=== PATIENT | female | born 1985 | race Caucasian/White ===

== ENCOUNTER 2016-11-07 23:53 | Emergency (ER) | payer MEDICAID ==
[2015-05-27 23:19] VITALS: BMI 36.1
[~2016-11-07 23:53] MED LIST: BACLOFEN10 MG PO; BACLOFEN20 M1 PO; CELEXA40 MG PO; CIPRO500 MG PO; DILAUDID2 MG PO; DILAUDID4 MG PO; KLONOPIN1 MG PO; LEVAQUIN750 MG PO; PERCOCET 10/3251 TA1 PO; PHENERGAN25 M1 PO; PRILOSEC20 MG PO; VANCOMYCIN 1 GM/1 G1 IV
== END 2016-11-08 01:03 | disposition home or self-care (01) ==
LOC: D.ER 23:53
DX: J20.9 Acute bronchitis, unspecified (principal); J06.9 Acute upper respiratory infection, unspecified; R19.7 Diarrhea, unspecified

== ENCOUNTER 2016-12-16 09:56 | Emergency (ER) | payer SELFPAY ==
[2015-05-27 23:19] VITALS: BMI 36.1
[2016-12-16 10:40] LABS: APPEARANCE HAZY (CLEAR); BILIRUBIN NEGATIVE (NEGATIVE); COLOR STRAW (YELLOW); GLUCOSE NEGATIVE (NEGATIVE); KETONE NEGATIVE (NEGATIVE); LEUKOCYTE ESTERASE TRACE (NEGATIVE); NITRITE NEGATIVE (NEGATIVE); PROTEIN NEGATIVE (NEGATIVE); SPECIFIC GRAVITY 1.015 (1.005-1.020); UROBILINOGEN NORMAL (NORMAL)
[2016-12-16 10:44] LABS: BASOPHILS 0.5 % (0.0-2.0); EOSINOPHILS 1.3 % (0-7); HEMATOCRIT 43.1 % (36.0-48.0); HEMOGLOBIN 14.4 g/dL (12-16); IMMATURE GRANULOCYTES 0.3 % (0-5); LYMPHOCYTES 23.5 % (15-50); MCH 31.6 pg (26.0-34.0); MCHC 33.4 g/dL (31.0-37.0); MCV 94.7 fL (80.0-100.0); NEUTROPHILS 67.4 % (40-80); PLATELET COUNT 165 10x3/uL (130-400); RBC 4.55 10x6/uL (4.00-5.40); RDW 12.5 % (11.5-14.5); WBC 6.4 10x3/uL (4.8-10.8)
[2016-12-16 10:49] LABS: BACTERIA MODERATE /hpf (NONE SEEN); RED CELLS - URINE 0-5 /hpf (0-5); WHITE CELLS - URINE 0-5 /hpf (0-5)
[2016-12-16 10:53] LABS: MUCUS <1+ /lpf (NONE SEEN)
[2016-12-16 10:54] LABS: AMORPHOUS SEDIMENT <1+ /lpf (NONE SEEN)
[2016-12-16 10:59] LABS: HCG URINE NEGATIVE (NEGATIVE)
[2016-12-16 11:20] LABS: ALBUMIN 3.7 g/dL (3.4-5.0); ALKALINE PHOSPHATASE 72 U/L (46-116); ALT (SGPT) 32 U/L (10-68); BILIRUBIN - TOTAL 0.64 mg/dL (0.2-1.3); CALC OSMOLALITY 274 mosm/kg (275-300); CALCIUM 8.9 mg/dL (8.5-10.1); CARBON DIOXIDE 22.8 mmol/L (21.0-32.0); CHLORIDE - SERUM 105 mmol/L (98-107); CREATININE - SERUM 0.8 mg/dL (0.6-1.3); GLUCOSE 86 mg/dL (74-106); POTASSIUM - SERUM 4.6 mmol/L (3.5-5.1); PROTEIN - SERUM 7.7 g/dL (6.4-8.2); SODIUM 137 mmol/L (136-145); UREA NITROGEN 19 mg/dL (7-18); eGFR NON AFRICAN AMERICAN 88 mL/min (90-120)
[2016-12-16 11:27] LABS: LIPASE 135 U/L (73-393)
== END 2016-12-16 13:24 | disposition home or self-care (01) ==
LOC: D.ER 09:56
PROVIDERS: Emergency Medicine
DX: R10.12 Left upper quadrant pain (principal); K59.00 Constipation, unspecified; F17.200 Nicotine dependence, unspecified, uncomplicated

== ENCOUNTER 2017-02-17 22:39 | Emergency (ER) | payer SELFPAY ==
[2015-05-27 23:19] VITALS: BMI 36.1
[2017-02-18 00:09] LABS: BASOPHILS 0.1 % (0-2); EOSINOPHILS 1.4 % (0-7); HEMATOCRIT 42.3 % (36.0-48.0); HEMOGLOBIN 14.1 g/dL (12-16); IMMATURE GRANULOCYTES 0.3 % (0-5); LYMPHOCYTES 23.5 % (15-50); MCH 31.7 pg (26.0-34.0); MCHC 33.3 g/dL (31.0-37.0); MCV 95.1 fL (80.0-100.0); MEAN PLATELET VOLUME 11.2 fL (7.4-10.4); MONOCYTES 4.9 % (2-11); NEUTROPHILS 69.8 % (40-80); PLATELET COUNT 163 10x3/uL (130-400); RBC 4.45 10x6/uL (4.00-5.40); RDW 12.2 % (11.5-14.5); WBC 7.8 10x3/uL (4.8-10.8)
[2017-02-18 00:25] LABS: ALBUMIN 3.8 g/dL (3.4-5.0); ALKALINE PHOSPHATASE 70 U/L (46-116); ALT (SGPT) 24 U/L (10-68); CALC OSMOLALITY 281 mosm/kg (275-300); CALCIUM 8.9 mg/dL (8.5-10.1); CARBON DIOXIDE 25.2 mmol/L (21.0-32.0); CHLORIDE - SERUM 103 mmol/L (98-107); CREATININE - SERUM 0.8 mg/dL (0.6-1.3); POTASSIUM - SERUM 3.8 mmol/L (3.5-5.1); PROTEIN - SERUM 7.2 g/dL (6.4-8.2); SODIUM 139 mmol/L (136-145); UREA NITROGEN 18 mg/dL (7-18); eGFR NON AFRICAN AMERICAN 88 mL/min (90-120)
[2017-02-18 00:27] LABS: GLUCOSE 134 mg/dL (74-106)
== END 2017-02-18 00:30 | disposition home or self-care (01) ==
LOC: D.ER 22:39
PROVIDERS: Physician Assistant Medical
DX: R05 Cough (principal); J06.9 Acute upper respiratory infection, unspecified; K59.00 Constipation, unspecified

== ENCOUNTER 2017-02-18 23:12 | Emergency (ER) | payer SELFPAY ==
[2015-05-27 23:19] VITALS: BMI 36.1
== END 2017-02-19 05:20 | disposition home or self-care (01) ==
LOC: D.ER 23:12
DX: S20.212A Contusion of left front wall of thorax, initial encounter (principal); S20.211A Contusion of right front wall of thorax, initial encounter; S50.02XA Contusion of left elbow, initial encounter; S60.212A Contusion of left wrist, initial encounter; V49.60XA Unspecified car occupant injured in collision with unspecified motor vehicles in traffic accident, initial encounter; S16.1XXA Strain of muscle, fascia and tendon at neck level, initial encounter

== ENCOUNTER 2017-02-20 22:23 | Emergency (ER) | payer SELFPAY ==
[2015-05-27 23:19] VITALS: BMI 36.1
[2017-02-21 00:56] LABS: HEMATOCRIT 37.7 % (36.0-48.0); HEMOGLOBIN 12.8 g/dL (12-16); LYMPHOCYTES 28.4 % (15-50); MCH 31.3 pg (26.0-34.0); MCV 92.2 fL (80.0-100.0); MEAN PLATELET VOLUME 10.5 fL (7.4-10.4); NEUTROPHILS 62.5 % (40-80); PLATELET COUNT 142 10x3/uL (130-400); RBC 4.09 10x6/uL (4.00-5.40); RDW 11.8 % (11.5-14.5); WBC 7.2 10x3/uL (4.8-10.8)
[2017-02-21 01:04] LABS: CALC OSMOLALITY 286 mosm/kg (275-300); CALCIUM 8.5 mg/dL (8.5-10.1); CARBON DIOXIDE 25.7 mmol/L (21.0-32.0); CHLORIDE - SERUM 107 mmol/L (98-107); CREATININE - SERUM 0.7 mg/dL (0.6-1.3); GLUCOSE 89 mg/dL (74-106); POTASSIUM - SERUM 3.8 mmol/L (3.5-5.1); SODIUM 142 mmol/L (136-145); UREA NITROGEN 26 mg/dL (7-18); eGFR NON AFRICAN AMERICAN > 90 mL/min (90-120)
== END 2017-02-21 02:16 | disposition home or self-care (01) ==
LOC: D.ER 22:23
PROVIDERS: Emergency Medicine Emergency Medical Services
DX: S50.02XA Contusion of left elbow, initial encounter (principal); S60.212A Contusion of left wrist, initial encounter; S20.212A Contusion of left front wall of thorax, initial encounter; S20.211A Contusion of right front wall of thorax, initial encounter; V59.9XXA Occupant (driver) (passenger) of pick-up truck or van injured in unspecified traffic accident, initial encounter

== ENCOUNTER 2017-05-10 22:36 | Emergency (ER) | payer SELFPAY ==
[2015-05-27 23:19] VITALS: BMI 36.1
== END 2017-05-11 03:00 | disposition home or self-care (01) ==
LOC: D.ER 22:36
DX: L73.9 Follicular disorder, unspecified (principal); D37.8 Neoplasm of uncertain behavior of other specified digestive organs; Z86.73 Personal history of transient ischemic attack (TIA), and cerebral infarction without residual deficits; I10 Essential (primary) hypertension

== ENCOUNTER 2017-06-14 13:45 | Emergency (ER) | payer SELFPAY ==
[2015-05-27 23:19] VITALS: BMI 36.1
[2017-06-14 16:22] LABS: BASOPHILS 0.2 % (0-2); EOSINOPHILS 2.1 % (0-7); HEMATOCRIT 41.6 % (36.0-48.0); HEMOGLOBIN 14.1 g/dL (12-16); IMMATURE GRANULOCYTES 0.3 % (0-5); LYMPHOCYTES 18.8 % (15-50); MCH 31.4 pg (26.0-34.0); MCHC 33.9 g/dL (31.0-37.0); MCV 92.7 fL (80.0-100.0); MEAN PLATELET VOLUME 10.5 fL (7.4-10.4); MONOCYTES 7.7 % (2-11); NEUTROPHILS 70.9 % (40-80); RBC 4.49 10x6/uL (4.00-5.40); RDW 12.1 % (11.5-14.5); WBC 6.6 10x3/uL (4.8-10.8)
[2017-06-14 16:37] LABS: PLATELET COUNT 176 10x3/uL (130-400)
[2017-06-14 16:38] LABS: ALBUMIN 3.3 g/dL (3.4-5.0); ALKALINE PHOSPHATASE 79 U/L (46-116); ALT (SGPT) 29 U/L (10-68); BILIRUBIN - TOTAL 0.31 mg/dL (0.2-1.3); CALC OSMOLALITY 277 mosm/kg (275-300); CALCIUM 8.6 mg/dL (8.5-10.1); CARBON DIOXIDE 28.1 mmol/L (21.0-32.0); CHLORIDE - SERUM 104 mmol/L (98-107); CREATININE - SERUM 0.7 mg/dL (0.6-1.3); GLUCOSE 95 mg/dL (74-106); POTASSIUM - SERUM 3.6 mmol/L (3.5-5.1); PROTEIN - SERUM 7.1 g/dL (6.4-8.2); SODIUM 138 mmol/L (136-145); UREA NITROGEN 19 mg/dL (7-18); eGFR NON AFRICAN AMERICAN > 90 mL/min (90-120)
== END 2017-06-14 18:20 | disposition home or self-care (01) ==
LOC: D.ER 13:45
PROVIDERS: Physician Assistant Medical
DX: K61.0 Anal abscess (principal); F17.200 Nicotine dependence, unspecified, uncomplicated

== ENCOUNTER 2017-06-21 22:19 | Emergency (ER) | payer MEDICAID ==
[2015-05-27 23:19] VITALS: BMI 36.1
[2017-06-21 22:55] LABS: APPEARANCE CLEAR (CLEAR); BILIRUBIN NEGATIVE (NEGATIVE); COLOR YELLOW (YELLOW); GLUCOSE NEGATIVE (NEGATIVE); KETONE NEGATIVE (NEGATIVE); NITRITE NEGATIVE (NEGATIVE); PROTEIN NEGATIVE (NEGATIVE); UROBILINOGEN NORMAL (NORMAL)
[2017-06-21 22:57] LABS: BACTERIA FEW /hpf (NONE SEEN); MUCUS <1+ /lpf (NONE SEEN); RED CELLS - URINE 0-5 /hpf (0-5); WHITE CELLS - URINE 0-5 /hpf (0-5)
[2017-06-21 23:30] LABS: HEMATOCRIT 39.9 % (36.0-48.0); HEMOGLOBIN 13.5 g/dL (12-16); LYMPHOCYTES 26.4 % (15-50); MCH 30.9 pg (26.0-34.0); MCHC 33.8 g/dL (31.0-37.0); MCV 91.3 fL (80.0-100.0); MEAN PLATELET VOLUME 9.8 fL (7.4-10.4); PLATELET COUNT 165 10x3/uL (130-400); RBC 4.37 10x6/uL (4.00-5.40); RDW 11.8 % (11.5-14.5); WBC 6.8 10x3/uL (4.8-10.8)
[2017-06-21 23:43] LABS: ALBUMIN 3.6 g/dL (3.4-5.0); ALKALINE PHOSPHATASE 72 U/L (46-116); ALT (SGPT) 29 U/L (10-68); AMYLASE - SERUM 41 U/L (25-115); CALC OSMOLALITY 289 mosm/kg (275-300); CALCIUM 8.5 mg/dL (8.5-10.1); CARBON DIOXIDE 27.8 mmol/L (21.0-32.0); CHLORIDE - SERUM 108 mmol/L (98-107); CREATININE - SERUM 0.8 mg/dL (0.6-1.3); GLUCOSE 108 mg/dL (74-106); LIPASE 146 U/L (73-393); POTASSIUM - SERUM 3.9 mmol/L (3.5-5.1); PROTEIN - SERUM 6.7 g/dL (6.4-8.2); SODIUM 144 mmol/L (136-145); UREA NITROGEN 19 mg/dL (7-18); eGFR NON AFRICAN AMERICAN 87 mL/min (90-120)
== END 2017-06-22 02:20 | disposition home or self-care (01) ==
LOC: D.ER 22:19
PROVIDERS: Family Medicine
DX: R10.9 Unspecified abdominal pain (principal); F17.200 Nicotine dependence, unspecified, uncomplicated

== ENCOUNTER 2017-07-27 21:28 | Emergency (ER) | payer MEDICAID ==
[2015-05-27 23:19] VITALS: BMI 36.1
== END 2017-07-28 00:52 | disposition home or self-care (01) ==
LOC: D.ER 21:28
DX: F07.81 Postconcussional syndrome (principal); S16.1XXA Strain of muscle, fascia and tendon at neck level, initial encounter; V43.52XA Car driver injured in collision with other type car in traffic accident, initial encounter; Y93.89 Activity, other specified; Y92.410 Unspecified street and highway as the place of occurrence of the external cause; S29.012A Strain of muscle and tendon of back wall of thorax, initial encounter

== ENCOUNTER 2017-10-17 20:15 | Emergency (ER) | payer MEDICAID ==
[2015-05-27 23:19] VITALS: BMI 36.1
[2017-10-17 21:34] LABS: APPEARANCE CLEAR (CLEAR); BACTERIA FEW /hpf (NONE SEEN); BILIRUBIN NEGATIVE (NEGATIVE); COLOR YELLOW (YELLOW); GLUCOSE NEGATIVE (NEGATIVE); KETONE NEGATIVE (NEGATIVE); MUCUS >1+ /lpf (NONE SEEN); NITRITE NEGATIVE (NEGATIVE); PROTEIN NEGATIVE (NEGATIVE); RED CELLS - URINE 0-5 /hpf (0-5); UROBILINOGEN NORMAL (NORMAL); WHITE CELLS - URINE 0-5 /hpf (0-5)
[2017-10-17 21:37] LABS: BASOPHILS 0.1 % (0-2); HEMATOCRIT 43.2 % (36.0-48.0); HEMOGLOBIN 14.4 g/dL (12-16); IMMATURE GRANULOCYTES 0.3 % (0-5); MCH 31.2 pg (26.0-34.0); MCHC 33.3 g/dL (31.0-37.0); MCV 93.5 fL (80.0-100.0); MEAN PLATELET VOLUME 10.8 fL (7.4-10.4); MONOCYTES 7.8 % (2-11); NEUTROPHILS 70.8 % (40-80); PLATELET COUNT 183 10x3/uL (130-400); RBC 4.62 10x6/uL (4.00-5.40); RDW 12.4 % (11.5-14.5); WBC 8.7 10x3/uL (4.8-10.8)
[2017-10-17 21:49] LABS: ALBUMIN 3.9 g/dL (3.4-5.0); ALKALINE PHOSPHATASE 59 U/L (46-116); ALT (SGPT) 24 U/L (10-68); BILIRUBIN - TOTAL 0.56 mg/dL (0.2-1.3); CALC OSMOLALITY 284 mosm/kg (275-300); CALCIUM 8.8 mg/dL (8.5-10.1); CARBON DIOXIDE 25.3 mmol/L (21.0-32.0); CHLORIDE - SERUM 104 mmol/L (98-107); CREATININE - SERUM 0.8 mg/dL (0.6-1.3); GLUCOSE 91 mg/dL (74-106); POTASSIUM - SERUM 3.8 mmol/L (3.5-5.1); PROTEIN - SERUM 7.7 g/dL (6.4-8.2); SODIUM 142 mmol/L (136-145); UREA NITROGEN 19 mg/dL (7-18); eGFR NON AFRICAN AMERICAN 87 mL/min (90-120)
[2017-10-17 23:55] LABS: AMYLASE - SERUM 47 U/L (25-115); LIPASE 125 U/L (73-393)
[2017-10-17 23:59] LABS: HCG URINE NEGATIVE (NEGATIVE)
== END 2017-10-18 03:37 | disposition home or self-care (01) ==
LOC: D.ER 20:15
PROVIDERS: Family Medicine
DX: N39.0 Urinary tract infection, site not specified (principal); K63.89 Other specified diseases of intestine; I10 Essential (primary) hypertension

== ENCOUNTER 2018-03-16 18:04 | Emergency (ER) | payer MEDICAID ==
[~2018-03-16] VITALS: Ht 162.6 cm; Wt 122.7 kg
[2018-03-16 18:18] VITALS: Ht 162.6 cm; Wt 122.7 kg
[2018-03-16 23:33] LABS: APPEARANCE CLEAR (CLEAR); BILIRUBIN NEGATIVE (NEGATIVE); COLOR YELLOW (YELLOW); GLUCOSE NEGATIVE (NEGATIVE); KETONE NEGATIVE (NEGATIVE); NITRITE NEGATIVE (NEGATIVE); PROTEIN NEGATIVE (NEGATIVE); SPECIFIC GRAVITY 1.015 (1.005-1.020); UROBILINOGEN NORMAL (NORMAL)
[2018-03-17 00:19] LABS: BASOPHILS 0.2 % (0-2); EOSINOPHILS 2.9 % (0-7); HEMOGLOBIN 13.6 g/dL (12-16); IMMATURE GRANULOCYTES 0.2 % (0-5); LYMPHOCYTES 23.7 % (15-50); MCH 31.4 pg (26.0-34.0); MCHC 33.2 g/dL (31.0-37.0); MCV 94.7 fL (80.0-100.0); MEAN PLATELET VOLUME 10.7 fL (7.4-10.4); MONOCYTES 5.6 % (2-11); NEUTROPHILS 67.4 % (40-80); PLATELET COUNT 184 10x3/uL (130-400); RBC 4.33 10x6/uL (4.00-5.40); RDW 12.8 % (11.5-14.5); WBC 8.2 10x3/uL (4.8-10.8)
[2018-03-17 00:42] LABS: ALBUMIN 3.4 g/dL (3.4-5.0); ALKALINE PHOSPHATASE 81 U/L (46-116); ALT (SGPT) 24 U/L (10-68); BILIRUBIN - TOTAL 0.34 mg/dL (0.2-1.3); CALC OSMOLALITY 281 mosm/kg (275-300); CHLORIDE - SERUM 106 mmol/L (98-107); CREATININE - SERUM 0.8 mg/dL (0.6-1.3); GLUCOSE 120 mg/dL (74-106); POTASSIUM - SERUM 3.7 mmol/L (3.5-5.1); PROTEIN - SERUM 7.3 g/dL (6.4-8.2); SODIUM 140 mmol/L (136-145); UREA NITROGEN 17 mg/dL (7-18); eGFR NON AFRICAN AMERICAN 87 mL/min (90-120)
[2018-03-17] MEDS ORDERED: ACETAMINOPHEN500 M1 PO (02:07)
[2018-03-17] MEDS ORDERED: CYCLOBENZAPRINE10 MG PO (02:07)
[2018-03-17] MEDS ORDERED: CLEOCIN HCL300 MG PO (02:07)
[2018-03-17] MEDS ORDERED: IBUPROFEN800 MG PO (02:07)
[2018-03-17] MEDS ORDERED: KEFLEX500 MG PO (02:07)
[2018-03-17 02:50] VITALS: BP 132/80
== END 2018-03-17 02:50 | disposition home or self-care (01) ==
LOC: D.ER 18:04
PROVIDERS: Family Medicine
DX: M79.605 Pain in left leg (principal); L03.311 Cellulitis of abdominal wall; F17.200 Nicotine dependence, unspecified, uncomplicated

== ENCOUNTER 2018-07-16 20:38 | Emergency (ER) | payer SELFPAY ==
[~2018-07-16] VITALS: Ht 162.6 cm; Wt 90.9 kg
[~2018-07-16 20:38] MED LIST changes: +ACETAMINOPHEN500 M1 PO; +CLEOCIN HCL300 MG PO; +CYCLOBENZAPRINE10 MG PO; +IBUPROFEN800 MG PO; +KEFLEX500 MG PO
[2018-07-16 20:46] VITALS: Ht 162.6 cm; Wt 90.9 kg
[2018-07-16] MEDS ORDERED: ZITHROMAX500 MG PO (21:05)
[2018-07-16] MEDS ORDERED: AMOXICILLIN500 M1 PO (21:05)
[2018-07-16] MEDS ORDERED: VENTOLIN HFA18 GM INH (21:05)
[2018-07-16 23:00] VITALS: BP 128/81
== END 2018-07-16 23:00 | disposition home or self-care (01) ==
LOC: D.ER 20:38
DX: J20.9 Acute bronchitis, unspecified (principal); F17.200 Nicotine dependence, unspecified, uncomplicated

== ENCOUNTER 2018-07-26 21:56 | Emergency (ER) | payer SELFPAY ==
[~2018-07-26] VITALS: Ht 162.6 cm; Wt 122.7 kg
[~2018-07-26 21:56] MED LIST changes: +AMOXICILLIN500 M1 PO; +VENTOLIN HFA18 GM INH; +ZITHROMAX500 MG PO
[2018-07-26 22:00] VITALS: Ht 162.6 cm; Wt 122.7 kg
[2018-07-26] MEDS ORDERED: ROBAXIN500 MG PO (23:25)
[2018-07-26] MEDS ORDERED: MEDROL DOSE PACK4 MG PO (23:25)
[2018-07-26 23:50] VITALS: BP 126/68
== END 2018-07-26 23:50 | disposition home or self-care (01) ==
LOC: D.ER 21:56
DX: J40 Bronchitis, not specified as acute or chronic (principal); Z91.19 Patient's noncompliance with other medical treatment and regimen; R09.1 Pleurisy; F17.200 Nicotine dependence, unspecified, uncomplicated

== ENCOUNTER 2019-03-21 11:28 | Day surgery (SDC) | payer BC ==
[~2019-03-21] VITALS: Ht 162.6 cm; Wt 124.5 kg
--- NOTE | ~2019-03-21 | OP ---
PATIENT NAME: HETAL LYN MEDICAL RECORD: [id number] :83 LOCATION:D.OPS ADMISSION DATE: SURGEON: HARLEY JOINER DO DATE OF OPERATION: 03/21/2019 PROCEDURE: Colonoscopy with biopsies. INDICATIONS FOR PROCEDURE: Change in bowel habits, generalized abdominal tenderness. SCOPE: Virtuix video pediatric colonoscope. MEDICATIONS: Propofol 250 mg IV per anesthesia. WITHDRAWAL TIME: 6 minutes. ESTIMATED BLOOD LOSS: Minimal. COMPLICATIONS: None. FINDINGS: Informed consent was given. The patient was made comfortable with the above medication. After reaching an adequate level of sedation by slow IV push, the patient was placed in the left side. A digital rectal examination was performed and it was normal. The endoscope was then advanced under direct visualization through the rectum to the cecum and terminal ileum. The endoscope was slowly withdrawn and mucosa was carefully examined. The prep quality was excellent. The terminal ileum looked normal. As the endoscope was withdrawn through the colon, random biopsies were taken to submit for histopathology and to rule out the presence of microscopic colitis. There were no abnormal lesions within the colon itself. No diverticula were seen. In the rectum, there was questionably abnormal mucosa at the most distal segment characterized by change in vascular pattern and some granularity. Cold forceps, biopsies were taken of this site separately to submit for histopathology. Retroflexion was performed with a normal-appearing rectal wall. The endoscope was then withdrawn from the patient. The patient tolerated the procedure well and there were no complications. IMPRESSION: Normal colonoscopy with questionable abnormal mucosa located to the very distal rectum. Biopsies were taken randomly throughout the colon as well as the rectum itself. PLAN AND RECOMMENDATIONS: 1. Discharge home when recovery parameters are met. 2. Follow up biopsy specimen results. 3. High fiber diet. 4. Continue current medications. 5. Proceed with EGD as scheduled. 6. We will provide a trial of dicyclomine 20 mg p.o. t.i.d. p.r.n. loose stools or abdominal pain or cramping. 7. Recall colonoscopy at age 49 for colorectal cancer screening. TRANSINT:[id number] Voice Confirmation ID: [id number] DOCUMENT ID: [id number] OPERATIVE REPORT [id number] HETAL LYN HARLEY JOINER DO CC: [id number] DICTATION DATE: 03/21/19 1510 PRODUCTION PAINTER: 03/21/19 1622 DEP SDC 03/21/19 [facility] [address] [place] [address]
[~2019-03-21 11:28] MED LIST changes: +MEDROL DOSE PACK4 MG PO; +ROBAXIN500 MG PO
[2019-03-21 12:01] LABS: HEMATOCRIT 44.7 % (36.0-48.0); HEMOGLOBIN 15.3 g/dL (12-16); MCH 31.4 pg (26.0-34.0); MCHC 34.2 g/dL (31.0-37.0); MCV 91.6 fL (80.0-100.0); MEAN PLATELET VOLUME 10.3 fL (7.4-10.4); RBC 4.88 10x6/uL (4.00-5.40); RDW 13.1 % (11.5-14.5); WBC 7.4 10x3/uL (4.8-10.8)
[2019-03-21 12:11] LABS: CALC OSMOLALITY 277 mosm/kg (275-300); CARBON DIOXIDE 27.3 mmol/L (21.0-32.0); CHLORIDE - SERUM 103 mmol/L (98-107); CREATININE - SERUM 0.8 mg/dL (0.6-1.3); GLUCOSE 87 mg/dL (74-106); POTASSIUM - SERUM 3.9 mmol/L (3.5-5.1); SODIUM 139 mmol/L (136-145); UREA NITROGEN 14 mg/dL (7-18); eGFR NON AFRICAN AMERICAN 87 mL/min (90-120)
[2019-03-21] MEDS ORDERED: MAXZIDE 75/501 TAB PO (13:28)
[2019-03-21] MEDS ORDERED: OXYBUTYNIN CHLOR5 M1 PO (13:30)
[2019-03-21] MEDS ORDERED: VICTOZA0.6 MG/0.1 SQ (13:30)
[2019-03-21 13:33] VITALS: Ht 162.6 cm; Wt 124.5 kg
[2019-03-21 13:55] LABS: HCG URINE NEGATIVE (NEGATIVE)
== END 2019-03-21 16:10 | disposition home or self-care (01) ==
LOC: D.OPS 11:28
PROVIDERS: Anesthesiology; ATTEND Internal Medicine Gastroenterology
DX: K52.9 Noninfective gastroenteritis and colitis, unspecified (principal); Z01.812 Encounter for preprocedural laboratory examination

== ENCOUNTER 2019-05-02 09:00 | Day surgery (SDC) | payer BC ==
[~2019-05-02] VITALS: Ht 162.6 cm; Wt 114.5 kg
[~2019-05-02 09:00] MED LIST changes: +MAXZIDE 75/501 TAB PO; +OXYBUTYNIN CHLOR5 M1 PO; +VICTOZA0.6 MG/0.1 SQ
[2019-05-02 09:25] LABS: HEMATOCRIT 41.1 % (36.0-48.0); HEMOGLOBIN 14.3 g/dL (12-16); MCH 31.5 pg (26.0-34.0); MCHC 34.8 g/dL (31.0-37.0); MCV 90.5 fL (80.0-100.0); MEAN PLATELET VOLUME 10.8 fL (7.4-10.4); RBC 4.54 10x6/uL (4.00-5.40); RDW 13.1 % (11.5-14.5); WBC 8.4 10x3/uL (4.8-10.8)
[2019-05-02 11:10] VITALS: Ht 162.6 cm; Wt 114.5 kg
--- NOTE | 2019-05-02 13:30 | NUR ---
IV DC'D WITH TIP INTACT, DISCHARGE INSTRUCTIONS PROVIDED. APPT WITH DR BLOCK FOR 05/10/19
--- NOTE | 2019-05-03 17:39 | OP ---
PATIENT NAME: HETAL LYN MEDICAL RECORD: [id number] :83 LOCATION:D.OPS ADMISSION DATE: SURGEON: HARLEY JOINER DO DATE OF OPERATION: 05/02/2019 PROCEDURE: EGD with biopsies. INDICATIONS FOR PROCEDURE: GERD, steatosis of liver, change in bowel habits, generalized abdominal tenderness. SCOPE: Olympus video gastroscope. MEDICATIONS: Propofol 350 mg IV per anesthesia. ESTIMATED BLOOD LOSS: Minimal. COMPLICATIONS: None. FINDINGS AND DESCRIPTION OF PROCEDURE: Informed consent was given. The patient was made comfortable with the above medication. After reaching an adequate level of sedation by slow IV push, the patient was placed on her left side. The endoscope was advanced under direct visualization through the mouth to the second portion of the duodenum with ease. The entire esophagus appeared normal. Cold forceps biopsies were taken from the midesophagus to rule out the presence of eosinophils. At the GE junction, there was evidence of LA class A reflux-induced esophagitis. Cold forceps biopsies were taken at the GE junction to rule out any Sandoval's mucosa. The patient did have a small sliding hiatal hernia, which could be seen proximally and distally upon retroflexion within the stomach. The mucosa of the stomach appeared normal throughout its entirety. Random cold forceps biopsies were taken to submit for histopathology and to rule out the presence of H. pylori. The endoscope was advanced beyond the pylorus into the duodenum, which appeared normal down to the second portion. Cold forceps biopsies were taken randomly to submit for histopathology. The endoscope was withdrawn from the patient. The patient tolerated the procedure well and there were no complications. IMPRESSION: 1. LA class A reflux-induced esophagitis. 2. Small sliding hiatal hernia. PLAN AND RECOMMENDATIONS: 1. Discharge home when recovery parameters are met. 2. Follow up biopsy specimen results. 3. High fiber diet and GERD diet with reflux precautions. 4. Continue current medications. 5. We will discuss changing omeprazole to another PPI versus referral to surgery for antireflux procedure and hiatal hernia repair. The hernia itself is small, but she does report significant reflux and actually reports laryngopharyngeal reflux. TRANSINT:[id number] Voice Confirmation ID: [id number] DOCUMENT ID: [id number] OPERATIVE REPORT [id number] HETAL LYN HRALEY JOINER DO at 1739 CC: [id number] DICTATION DATE: 05/02/19 1247 [employer]OE [employer]S CASER: 05/02/19 1300 [facility] 05/02/19 [place] [id number] [place] [address]
== END 2019-05-02 13:34 | disposition home or self-care (01) ==
LOC: D.OPS 09:00
PROVIDERS: Anesthesiology; ATTEND Internal Medicine Gastroenterology
DX: K21.9 Gastro-esophageal reflux disease without esophagitis (principal); K76.0 Fatty (change of) liver, not elsewhere classified; R19.4 Change in bowel habit; K21.0 Gastro-esophageal reflux disease with esophagitis; K44.9 Diaphragmatic hernia without obstruction or gangrene

== ENCOUNTER 2019-05-23 17:00 | Emergency (ER) | payer BC ==
[~2019-05-23] VITALS: Ht 162.6 cm; Wt 113.6 kg
[2019-05-23 17:24] VITALS: Ht 162.6 cm; Wt 113.6 kg
[2019-05-23 18:22] LABS: BASOPHILS 0.2 % (0-2); EOSINOPHILS 0.5 % (0-7); HEMATOCRIT 40.9 % (36.0-48.0); HEMOGLOBIN 14.2 g/dL (12-16); IMMATURE GRANULOCYTES 0.3 % (0-5); LYMPHOCYTES 9.6 % (15-50); MCH 31.8 pg (26.0-34.0); MCHC 34.7 g/dL (31.0-37.0); MCV 91.7 fL (80.0-100.0); MEAN PLATELET VOLUME 11.3 fL (7.4-10.4); MONOCYTES 7.1 % (2-11); NEUTROPHILS 82.3 % (40-80); PLATELET COUNT 155 10x3/uL (130-400); RBC 4.46 10x6/uL (4.00-5.40); WBC 9.2 10x3/uL (4.8-10.8)
[2019-05-23 18:48] LABS: ALBUMIN 2.9 g/dL (3.4-5.0); ALKALINE PHOSPHATASE 74 U/L (46-116); ALT (SGPT) 30 U/L (10-68); BILIRUBIN - TOTAL 0.77 mg/dL (0.2-1.3); CALC OSMOLALITY 267 mosm/kg (275-300); CALCIUM 8.1 mg/dL (8.5-10.1); CARBON DIOXIDE 24.6 mmol/L (21.0-32.0); CHLORIDE - SERUM 102 mmol/L (98-107); CREATININE - SERUM 0.6 mg/dL (0.6-1.3); GLUCOSE 87 mg/dL (74-106); POTASSIUM - SERUM 4.6 mmol/L (3.5-5.1); PROTEIN - SERUM 7.1 g/dL (6.4-8.2); SODIUM 135 mmol/L (136-145); UREA NITROGEN 11 mg/dL (7-18); eGFR NON AFRICAN AMERICAN > 90 mL/min (90-120)
[2019-05-23 21:38] VITALS: BP 137/76
== END 2019-05-23 21:38 | disposition home or self-care (01) ==
LOC: D.ER 17:00
PROVIDERS: Emergency Medicine
DX: K08.89 Other specified disorders of teeth and supporting structures (principal)

== ENCOUNTER 2019-05-31 13:58 | Emergency (ER) | payer BC ==
[~2019-05-31] VITALS: Ht 162.6 cm; Wt 113.6 kg
[2019-05-31 14:10] VITALS: Ht 162.6 cm; Wt 113.6 kg
[2019-05-31] MEDS ORDERED: KEFLEX500 MG PO (14:14)
[2019-05-31] MEDS ORDERED: AUGMENTIN 875-11 TAB PO (15:42)
[2019-05-31 16:22] LABS: BASOPHILS 0.3 % (0-2); EOSINOPHILS 1.4 % (0-7); HEMATOCRIT 38.9 % (36.0-48.0); HEMOGLOBIN 13.7 g/dL (12-16); IMMATURE GRANULOCYTES 0.4 % (0-5); LYMPHOCYTES 28.4 % (15-50); MCH 31.3 pg (26.0-34.0); MCHC 35.2 g/dL (31.0-37.0); MCV 88.8 fL (80.0-100.0); MEAN PLATELET VOLUME 10.3 fL (7.4-10.4); MONOCYTES 6.1 % (2-11); NEUTROPHILS 63.4 % (40-80); RBC 4.38 10x6/uL (4.00-5.40); RDW 12.8 % (11.5-14.5); WBC 7.2 10x3/uL (4.8-10.8)
[2019-05-31 16:45] LABS: ALBUMIN 3.5 g/dL (3.4-5.0); ALKALINE PHOSPHATASE 68 U/L (46-116); ALT (SGPT) 41 U/L (10-68); BILIRUBIN - TOTAL 0.44 mg/dL (0.2-1.3); CALC OSMOLALITY 277 mosm/kg (275-300); CALCIUM 8.2 mg/dL (8.5-10.1); CARBON DIOXIDE 25.1 mmol/L (21.0-32.0); CHLORIDE - SERUM 105 mmol/L (98-107); CREATININE - SERUM 0.7 mg/dL (0.6-1.3); GLUCOSE 76 mg/dL (74-106); POTASSIUM - SERUM 4.1 mmol/L (3.5-5.1); PROTEIN - SERUM 6.8 g/dL (6.4-8.2); SODIUM 139 mmol/L (136-145); UREA NITROGEN 14 mg/dL (7-18); eGFR NON AFRICAN AMERICAN > 90 mL/min (90-120)
[2019-05-31 17:06] LABS: PLATELET COUNT 227 10x3/uL (130-400)
[2019-05-31 18:00] VITALS: BP 146/100
== END 2019-05-31 18:00 | disposition home or self-care (01) ==
LOC: D.ER 13:58
PROVIDERS: Emergency Medicine
DX: M27.2 Inflammatory conditions of jaws (principal); F17.200 Nicotine dependence, unspecified, uncomplicated; I10 Essential (primary) hypertension

== ENCOUNTER 2019-06-03 14:52 | Emergency (ER) | payer BC ==
[~2019-06-03] VITALS: Ht 162.6 cm; Wt 113.6 kg
[~2019-06-03 14:52] MED LIST changes: +AUGMENTIN 875-11 TAB PO
[2019-06-03 14:59] VITALS: Ht 162.6 cm; Wt 113.6 kg
[2019-06-03 15:37] LABS: BASOPHILS 0.3 % (0-2); EOSINOPHILS 1.8 % (0-7); HEMATOCRIT 38.6 % (36.0-48.0); HEMOGLOBIN 13.3 g/dL (12-16); IMMATURE GRANULOCYTES 0.3 % (0-5); LYMPHOCYTES 21.7 % (15-50); MCH 31.4 pg (26.0-34.0); MCHC 34.5 g/dL (31.0-37.0); MCV 91.3 fL (80.0-100.0); MEAN PLATELET VOLUME 10.1 fL (7.4-10.4); MONOCYTES 6.7 % (2-11); NEUTROPHILS 69.2 % (40-80); PLATELET COUNT 227 10x3/uL (130-400); RBC 4.23 10x6/uL (4.00-5.40); RDW 13.2 % (11.5-14.5); WBC 7.8 10x3/uL (4.8-10.8)
[2019-06-03 15:52] LABS: ALBUMIN 3.4 g/dL (3.4-5.0); ALKALINE PHOSPHATASE 70 U/L (46-116); ALT (SGPT) 27 U/L (10-68); BILIRUBIN - TOTAL 0.28 mg/dL (0.2-1.3); C-REACTIVE PROTEIN 0.5 mg/dL (0.0-0.9); CALC OSMOLALITY 284 mosm/kg (275-300); CALCIUM 8.7 mg/dL (8.5-10.1); CARBON DIOXIDE 28.5 mmol/L (21.0-32.0); CHLORIDE - SERUM 107 mmol/L (98-107); CREATININE - SERUM 0.9 mg/dL (0.6-1.3); GLUCOSE 97 mg/dL (74-106); POTASSIUM - SERUM 4.1 mmol/L (3.5-5.1); PROTEIN - SERUM 6.8 g/dL (6.4-8.2); SODIUM 142 mmol/L (136-145); UREA NITROGEN 17 mg/dL (7-18); eGFR NON AFRICAN AMERICAN 75 mL/min (90-120)
[2019-06-03] MEDS ORDERED: EC-NAPROSYN500 MG PO (17:14)
[2019-06-03 17:27] VITALS: BP 157/103
== END 2019-06-03 18:00 | disposition home or self-care (01) ==
LOC: D.ER 14:52
PROVIDERS: Family Medicine
DX: K04.7 Periapical abscess without sinus (principal); F17.200 Nicotine dependence, unspecified, uncomplicated; I10 Essential (primary) hypertension

== ENCOUNTER → 2019-06-14 07:09 | Outpatient (CLI) | payer BC ==
[2019-06-03 14:59] VITALS: BMI 43.0
[~2019-06-14 07:09] MED LIST changes: +EC-NAPROSYN500 MG PO
[2019-06-14 09:22] LABS: HCG SERUM NEGATIVE (NEGATIVE)
== END | disposition home or self-care (01) ==
LOC: D.OPS 05-29 08:30
PROVIDERS: Radiology Neuroradiology; ATTEND Surgery
DX: K21.0 Gastro-esophageal reflux disease with esophagitis (principal)

== ENCOUNTER 2020-12-08 07:54 | Emergency (ER) | payer MEDICAID ==
[~2020-12-08] VITALS: Ht 162.6 cm; Wt 67.3 kg
[2020-12-08 07:59] VITALS: Ht 162.6 cm; Wt 67.3 kg
[2020-12-08] MEDS ORDERED: KLONOPIN0.5 MG PO (08:02)
[2020-12-08 08:51] LABS: BACTERIA FEW HPF (NONE SEEN); BILIRUBIN NEGATIVE (NEGATIVE); KETONE NEGATIVE (NEGATIVE); NITRITE NEGATIVE (NEGATIVE); SQUAMOUS EPITHELIAL 0-5 HPF (0-4); WHITE CELLS - URINE 0-5 HPF (0-4)
[2020-12-08 08:58] LABS: UDS - AMPHET NEGATIVE QUAL (NEGATIVE); UDS - BARB NEGATIVE QUAL (NEGATIVE); UDS - BENZO NEGATIVE QUAL (NEGATIVE); UDS - COCAINE NEGATIVE QUAL (NEGATIVE); UDS - OPIATE NEGATIVE QUAL (NEGATIVE); UDS - PCP NEGATIVE QUAL (NEGATIVE); UDS - THC POSITIVE QUAL (NEGATIVE)
[2020-12-08 09:04] LABS: HCG URINE NEGATIVE (NEGATIVE)
[2020-12-08 09:20] LABS: CALC OSMOLALITY 280 mosm/kg (275-300); CARBON DIOXIDE 25.4 mmol/L (21.0-32.0); CHLORIDE - SERUM 107 mmol/L (98-107); CREATININE - SERUM 0.7 mg/dL (0.6-1.3); GLUCOSE 111 mg/dL (74-106); POTASSIUM - SERUM 4.2 mmol/L (3.5-5.1); SODIUM 139 mmol/L (136-145); UREA NITROGEN 19 mg/dL (7-18); eGFR NON AFRICAN AMERICAN > 90 mL/min (90-120)
[2020-12-08 09:26] LABS: ALBUMIN 3.7 g/dL (3.4-5.0); ALKALINE PHOSPHATASE 59 U/L (30-120); ALT (SGPT) 25 U/L (10-68); BILIRUBIN - TOTAL 0.78 mg/dL (0.2-1.3); PROTEIN - SERUM 7.1 g/dL (6.4-8.2)
[2020-12-08 10:25] LABS: BASOPHILS 0.3 % (0-2); HEMATOCRIT 43.6 % (36.0-48.0); HEMOGLOBIN 14.1 g/dL (12-16); IMMATURE GRANULOCYTES 0.1 % (0-5); LYMPHOCYTE ABS# 0.98 10x3/uL (1.18-3.74); LYMPHOCYTES 13.6 % (15-50); MCHC 32.3 g/dL (31.0-37.0); MCV 89.7 fL (80.0-100.0); MEAN PLATELET VOLUME 10.3 fL (7.4-10.4); NEUTROPHIL ABS# 5.79 10x3/uL (1.56-6.13); RBC 4.86 10x6/uL (4.00-5.40); RDW 13.2 % (11.5-14.5); WBC 7.2 10x3/uL (4.8-10.8)
[2020-12-08 10:27] LABS: PLATELET COUNT 172 10x3/uL (130-400)
[2020-12-08] MEDS ORDERED: MECLIZINE HCL25 MG PO (11:57)
[2020-12-08 14:12] VITALS: BP 99/58
== END 2020-12-08 14:12 | disposition home or self-care (01) ==
LOC: D.ER 07:54
PROVIDERS: Emergency Medicine
DX: R11.2 Nausea with vomiting, unspecified (principal); R42 Dizziness and giddiness; F12.10 Cannabis abuse, uncomplicated; E86.0 Dehydration; K21.9 Gastro-esophageal reflux disease without esophagitis; I10 Essential (primary) hypertension

== ENCOUNTER 2020-12-10 16:52 | Emergency (ER) | payer MEDICAID ==
[~2020-12-10] VITALS: Ht 162.6 cm; Wt 110.9 kg
[~2020-12-10 16:52] MED LIST changes: +KLONOPIN0.5 MG PO; +MECLIZINE HCL25 MG PO
[2020-12-10 16:59] VITALS: Ht 162.6 cm; Wt 110.9 kg
[2020-12-10 17:55] LABS: BASOPHILS 0.1 % (0-2); EOSINOPHILS 0.7 % (0-7); HEMATOCRIT 43.4 % (36.0-48.0); HEMOGLOBIN 14.2 g/dL (12-16); IMMATURE GRANULOCYTES 0.3 % (0-5); LYMPHOCYTE ABS# 2.11 10x3/uL (1.18-3.74); LYMPHOCYTES 23.1 % (15-50); MCH 29.3 pg (26.0-34.0); MCHC 32.7 g/dL (31.0-37.0); MCV 89.5 fL (80.0-100.0); MEAN PLATELET VOLUME 11.5 fL (7.4-10.4); MONOCYTES 7.8 % (2-11); NEUTROPHIL ABS# 6.22 10x3/uL (1.56-6.13); PLATELET COUNT 212 10x3/uL (130-400); RBC 4.85 10x6/uL (4.00-5.40); RDW 12.8 % (11.5-14.5); WBC 9.1 10x3/uL (4.8-10.8)
[2020-12-10 17:57] LABS: CALC OSMOLALITY 275 mosm/kg (275-300); CHLORIDE - SERUM 106 mmol/L (98-107); CREATININE - SERUM 0.7 mg/dL (0.6-1.3); GLUCOSE 104 mg/dL (74-106); POTASSIUM - SERUM 3.4 mmol/L (3.5-5.1); SODIUM 138 mmol/L (136-145); UREA NITROGEN 12 mg/dL (7-18); eGFR NON AFRICAN AMERICAN > 90 mL/min (90-120)
[2020-12-10 17:58] LABS: BILIRUBIN NEGATIVE (NEGATIVE); KETONE NEGATIVE (NEGATIVE); NITRITE NEGATIVE (NEGATIVE); UROBILINOGEN NORMAL mg/dL (< 2)
[2020-12-10 18:03] LABS: ALBUMIN 3.9 g/dL (3.4-5.0); ALKALINE PHOSPHATASE 72 U/L (30-120); ALT (SGPT) 24 U/L (10-68); PROTEIN - SERUM 7.5 g/dL (6.4-8.2)
[2020-12-10 18:05] LABS: UDS - AMPHET NEGATIVE QUAL (NEGATIVE); UDS - BARB NEGATIVE QUAL (NEGATIVE); UDS - BENZO NEGATIVE QUAL (NEGATIVE); UDS - COCAINE NEGATIVE QUAL (NEGATIVE); UDS - OPIATE NEGATIVE QUAL (NEGATIVE); UDS - PCP NEGATIVE QUAL (NEGATIVE); UDS - THC POSITIVE QUAL (NEGATIVE)
[2020-12-10] MEDS ORDERED: PHENERGAN25 M1 PO (19:35)
[2020-12-10 20:12] VITALS: BP 131/80
== END 2020-12-10 19:50 | disposition home or self-care (01) ==
LOC: D.ER 16:52
PROVIDERS: Family Medicine
DX: F43.0 Acute stress reaction (principal); F41.9 Anxiety disorder, unspecified; R42 Dizziness and giddiness; R11.0 Nausea; I10 Essential (primary) hypertension; K21.9 Gastro-esophageal reflux disease without esophagitis